=== PATIENT | male | born 1975 | race Caucasian/White ===

== ENCOUNTER 2019-04-02 07:03 | Emergency (ER) | payer OTHER, BC ==
--- NOTE | 2019-04-02 07:50 | EDM.PDOC ---
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 Seen by Provider: 04/02/19 07:25 Source of Information: Reports: Patient History Limitations: Reports: No Limitations - History of Present Illness INITIAL COMMENTS - FREE TEXT/NARRATIVE: the [employer] putting up stuff only metal shelf cut the back side of his first finger approximately 20 minutes prior to arrival he has no complaints of numbness tingling loss of sensation coldness decreased range of motion he has no other medical complaints at this time History tetanus is up-to-date no history of any medical issues Onset: Today Duration: Minutes: Associated Symptoms: Reports: No Other Symptoms - Related Data Allergies Allergy/AdvReac Type Severity Reaction Status Date / Time No Known Allergies Allergy Verified 04/11/16 13:40 Home Meds: Home Meds Albuterol [Take Home: Albuterol 6.7 GM, 1 INH Pack] 2 puff INH Q4H PRN 04/11/16 [History] Fluticasone Propionate [Flonase] 1 spray NASBOTH BID PRN 04/11/16 [History] Fluticasone/Salmeterol [Advair Diskus 100-50] 1 puff INH BID 04/11/16 [History] Past Medical History Respiratory History: Reports: Asthma - History Comment History Comment: Allergies. Review of Systems - Review of Systems Review Of Systems: See Below Constitutional: Reports: No Symptoms Musculoskeletal: Reports: No Symptoms Skin: Denies: Cyanosis, Bruising, Change in Color Neurological: Reports: No Symptoms. Denies: Dizziness, Numbness, Tingling ED EXAM, GENERAL - Physical Exam Exam: See Below Exam Limited By: No Limitations General Appearance: Alert, WD/WN, No Apparent Distress. No: Mild Distress, Moderate Distress Extremities: Normal Inspection, Normal Range of Motion, Non-Tender, No Pedal Edema, Normal Capillary Refill, Other (Exam to the right hand first finger patient has full range of motion neurovascularly intact positive Refill and soft touch sensation normal FDS FDP normal extensors as proximally 1 cm linear laceration by 2 mm x 2 mm to the posterior first finger between the PIP and MCP joint the laceration has no active bleeding visible tendon damage) Neurological: Alert, Oriented, CN II-XII Intact, Normal Cognition, Normal Gait, No Motor/Sensory Deficits Psychiatric: Normal Affect Skin Exam: Warm, Dry, Normal Color, No Rash. No: Intact Course - Vital Signs Text/Narrative:: Laceration was soaked in Betadine and normal saline laceration was irrigated with normal saline under pressure laceration was cleansed with Hibiclens and normal saline laceration was closed with #3 5-0 Ethilon simple interrupted sutures no lidocaine was used secondary to having to perform a digital block patient states he would rather just have the stitches patient tolerated procedure well laceration was covered with Neosporin and Band-Aid Coban patient was instructed to keep the area clean wash daily with warm soapy water 3-4 times a day apply Neosporin twice they keep the area covered for at least 3 days he is to have sutures removed in 7-10 days follow primary care provider in the next 2-3 days return to emergency room if anything gets worse changes any numbness or tingling swelling redness heat to the area decreased range of motion Departure - Departure Time of Disposition: 07:45 Disposition: Home, Self-Care 01 Condition: Good Clinical Impression: Laceration of finger of right hand - Discharge Information Instructions: Wound Care, Adult, Sutured Wound Care Referrals: PCP,Unknown [Ordering Only Provider] - Forms: ED Department Discharge - Problem List & Annotations (1) Laceration of finger of right hand SNOMED Code(s): 526765239 Code(s): S61.219A - LACERATION W/O FB OF UNSP FINGER W/O DAMAGE TO NAIL, INIT Status: Acute Current Visit: Yes Qualifiers: Finger: index finger (2) Laceration of finger of right hand SNOMED Code(s): 531708568 Code(s): S61.219A - LACERATION W/O FB OF UNSP FINGER W/O DAMAGE TO NAIL, INIT Status: Acute Current Visit: Yes
[2019-04-02 07:53] VITALS: BP 156/94; PULSE 94
== END 2019-04-02 08:07 | disposition home or self-care (01) ==
LOC: VM.ED 07:03
DX: S61.210A Laceration without foreign body of right index finger without damage to nail, initial encounter (principal); J45.909 Unspecified asthma, uncomplicated; Z79.899 Other long term (current) drug therapy; W45.8XXA Other foreign body or object entering through skin, initial encounter
CPT/HCPCS: 12001; 99282

== ENCOUNTER 2020-01-20 13:13 | Emergency (ER) | payer BC, OTHER ==
--- NOTE | 2020-01-20 13:24 | EDM.PDOC ---
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 [employer] Patient has no other complaints at this time Does not want any type of lidocaine or Marcaine used states he will just take the stitches in the finger with no anesthetic He denies any numbness tingling or loss of range of motion he did clean it with soap and water before coming to the hospital Onset: Today Duration: Minutes: Severity: Mild Worsens with: Reports: None Associated Symptoms: Reports: No Other Symptoms - Related Data Allergies Allergy/AdvReac Type Severity Reaction Status Date / Time No Known Allergies Allergy Verified 04/02/19 07:46 Home Meds: Home Meds Albuterol [Take Home: Albuterol 6.7 GM, 1 INH Pack] 2 puff INH Q4H PRN 04/11/16 [History] Fluticasone Propionate [Flonase] 1 spray NASBOTH BID PRN 04/11/16 [History] Fluticasone/Salmeterol [Advair Diskus 100-50] 1 puff INH BID 04/11/16 [History] Past Medical History Respiratory History: Reports: Asthma - History Comment History Comment: Allergies. Review of Systems - Review of Systems Review Of Systems: See Below Constitutional: Reports: No Symptoms Musculoskeletal: Reports: No Symptoms Skin: Reports: Other (Laceration) Neurological: Reports: No Symptoms Psychiatric: Reports: No Symptoms ED EXAM, GENERAL - Physical Exam Exam: See Below Exam Limited By: No Limitations General Appearance: Alert, WD/WN, No Apparent Distress Extremities: Normal Inspection, Normal Range of Motion, Non-Tender, Normal Capillary Refill, Other (Exam to the right fifth phalange E there is approximately half centimeter linear laceration to the pad he has normal FDS and FDP normal opposition and abduction he is neurovascular intact equal soft touch sensation full range of motion). No: Limited Range of Motion Neurological: Alert, Oriented, CN II-XII Intact, Normal Cognition, Normal Gait, No Motor/Sensory Deficits Psychiatric: Normal Affect, Normal Mood Skin Exam: Warm, Dry, Normal Color, No Rash. No: Intact Course - Vital Signs Text/Narrative:: The area was cleaned with soap and water Betadine and irrigated with normal saline #5-0 Ethilon with 3 simple interrupted sutures was placed the area was covered with Neosporin Telfa pad 4 x 4 splinted with a tongue depressor patient was given signs and symptoms secondary infections and appropriate wound care instructions Departure - Departure Time of Disposition: 13:40 Disposition: Home, Self-Care 01 Condition: Good Clinical Impression: Finger laceration - Discharge Information Instructions: Laceration Care, Adult Forms: ED Department Discharge Additional Instructions: Keep the area clean with warm hot soapy water make sure you wash her hands at least 4-5 times a day apply Neosporin to the area at least 3 times a day Follow-up with your regular primary care provider in the next 48 hours for wound recheck have the stitches removed in 7 days Watch for any signs or symptoms of infection such as redness swelling heat decreased movement or pain with movement to the finger or discharge from the wound if that occurs go directly to your primary care provider Return to the emergency room if anything changes or gets worse - Problem List & Annotations (1) Laceration of finger of right hand SNOMED Code(s): 026610119 Code(s): S61.219A - LACERATION W/O FB OF UNSP FINGER W/O DAMAGE TO NAIL, INIT Status: Acute Current Visit: No
[2020-01-20 13:30] VITALS: BP 140/80; PULSE 68
== END 2020-01-20 13:54 | disposition home or self-care (01) ==
LOC: VM.ED 13:13
DX: S61.216A Laceration without foreign body of right little finger without damage to nail, initial encounter (principal); J45.909 Unspecified asthma, uncomplicated; X58.XXXA Exposure to other specified factors, initial encounter
CPT/HCPCS: 12001; 99282-25